=== PATIENT | male | born 1955 | race Caucasian/White ===

== ENCOUNTER 2018-02-03 11:49 | Inpatient (IN) | payer BC ==
--- NOTE | 2018-02-03 12:29 | PDOC ---
History of Present Illness - General Chief Complaint: Seizure Stated Complaint: SEIZURE Time Seen by Provider: 02/03/18 12:08 - History of Present Illness Initial Comments: The patient is a 62M w/ a history of depression and HLD who presents for evaluation of 'seizure-like' activity that started today. The patient states that he first noticed symptoms yesterday which he felt were GERD-like. Today he reports having multiple, short (less than 1min) episodes that are described as a brief loss of consciousness, that he does not remember, and are not followed by a postictal state. He states that he can feel them come on by having a 'jackson to the head.' He denies chest pain, SOB, BAKER, cough, recent illness, fevers, or any other associated symptoms. The patient denies ever having had episodes like this before. He denies history of cardiac disease or cardiac events. 02/03/18 12:26 Past History - Past Medical History Allergies/Adverse Reactions: Allergies Allergy/AdvReac Type Severity Reaction Status Date / Time Penicillins Allergy Rash Verified 02/03/18 17:38 Home Medications: Ambulatory Orders Aripiprazole [Abilify] 10 mg PO DAILY 02/03/18 Escitalopram Oxalate [Lexapro -] 20 mg PO DAILY 02/03/18 Lamotrigine [Lamictal] 200 mg PO BID 02/03/18 COPD: No - Suicide/Smoking/Psychosocial Hx Smoking History: Never smoked Have you smoked in the past 12 months: No Information on smoking cessation initiated: No Hx Alcohol Use: No Drug/Substance Use Hx: No Substance Use Type: None Review of Systems - Review of Systems Able to Perform ROS?: Yes Comments:: GENERAL/CONSTITUTIONAL: No fever or chills. No weakness HEAD, EYES, EARS, NOSE AND THROAT: No change in vision. No ear pain or discharge. No sore throat CARDIOVASCULAR: No chest pain or shortness of breath RESPIRATORY: No cough, wheezing, or hemoptysis GASTROINTESTINAL: No nausea, vomiting, diarrhea or constipation GENITOURINARY: No dysuria, frequency, or change in urination MUSCULOSKELETAL: No joint or muscle swelling or pain. No neck or back pain SKIN: No rash NEUROLOGIC: No headache, vertigo, loss of consciousness, or change in strength/ sensation ENDOCRINE: No increased thirst. No abnormal weight change HEMATOLOGIC/LYMPHATIC: No anemia, easy bleeding, or history of blood clots ALLERGIC/IMMUNOLOGIC: No hives or skin allergy 02/03/18 13:42 Is the patient limited Maltese proficient: No *Physical Exam - Vital Signs Last Vital Signs Temp Pulse Resp BP Pulse Ox 98.0 F 48 L 16 127/80 100 02/03/18 11:49 02/03/18 11:49 02/03/18 11:49 02/03/18 11:49 02/03/18 11:49 - Physical Exam Comments: GENERAL: Awake, alert, and fully oriented, in no acute distress HEAD: No signs of trauma, normocephalic, atraumatic EYES: PERRL, EOMI, sclera anicteric, conjunctiva clear ENT: Hearing grossly normal, nares patent, oropharynx clear without exudates. Moist mucosa NECK: Normal ROM, supple, no lymphadenopathy LUNGS: No distress, speaks full sentences, clear to auscultation bilaterally HEART: Bradycardia w/ regular rhythm, no murmurs appreciated, peripheral pulses normal and equal bilaterally ABDOMEN: Soft, nontender, normoactive bowel sounds. No guarding, no rebound EXTREMITIES : Normal inspection, Normal range of motion, no edema. No clubbing or cyanosis NEUROLOGICAL: Cranial nerves II through XII grossly intact. Normal speech, normal gait, no focal sensorimotor deficits SKIN: Warm, Dry, normal turgor, no rashes or lesions noted 02/03/18 13:41 ED Treatment Course - LABORATORY CBC & Chemistry Diagram: 02/03/18 12:30 02/03/18 12:23 Medical Decision Making - Medical Decision Making The patient is a 62M w/ a history of depression and hypercholesterolemia who presents w/ 1 day of short, syncopal v seizure-like episodes. Ddx: seizure v cardiac dz v cardiac conduction block v lyte abn v Lyme dz ED Course CMP, CBC, cardiac enzymes, TSH, Lyme titer ECG Patient denies any bites/exposures Denies hx of thyroid dz ECG significant for 3rd degree heartblock Transcutaneous pacer pads placed but patient not currently being paced Cardiology consulted, Dr. Corbin -Patient started on Dobutamine gtt Plan for admission to ICU for 3rd degree heart block ICU consulted No leukocytosis Lytes wnl No HOLLI Repeat ECG per Hospitalist Patient w/o repeat episode since initiation of dopamine gtt (currently at 7 mcg/ kg/min) Pacer pads still in place Patient reports feeling well HR 80s, BP 130s/70s, SpO2 90s on RA; Patient reports feeling well at this time Dispo: ICU Admit 02/03/18 13:51 *DC/Admit/Observation/Transfer Diagnosis at time of Disposition: High-grade atrioventricular block - Discharge Dispostion Condition at time of disposition: Guarded Decision to Admit order: Yes - Referrals - Patient Instructions - Post Discharge Activity
[2018-02-03] MEDS ORDERED: MIDAZOLAM HCL 2 MG/2 ML SINGLE DOSE VIAL ONE ×2 (12:32→18:28)
--- NOTE | 2018-02-03 12:39 | PDOC ---
Attending Attestation - HPI HPI: 02/03/18 13:30 The patient is a 62 year old male, with a significant past medical history of depression and hyperlipidemia, who presents to the emergency department for evaluation of multiple seizures-like episodes since yesterday. He reports the seizures as body shaking lasting for about 1 minute before resolving. He reportedly passed out yesterday and woke up on the floor. He denies any preceding chest pain, shortness of breath, or diaphoresis prior to his seizure and syncope yesterday. He states he was talking on the phone with family today when the body shaking recurred prompting him to call EMS. He denies any LOC at home today. As per EMS, the patient became unresponsive in route and his QRS disappeared and returned when he regained consciousness. He denies any recent medication use. He is a retired [employer]. The patient denies chest pain, shortness of breath, headache and dizziness. The patient denies fever, chills, nausea, vomit, diarrhea and constipation. The patient denies dysuria, frequency, urgency and hematuria. Allergies: Penicillins Social history: Pt denies ETOH or tobacco use PCP - Dr. Leon Ramires - Physicial Exam PE: 02/03/18 13:30 GENERAL: The patient is awake, alert, and fully oriented, Nontoxic. In no distress. HEAD: Normocephalic, atraumatic. EYES: extraocular movements intact, sclera anicteric, conjunctiva clear. ENT: Normal voice, Moist mucous membranes. NECK: Normal range of motion, supple LUNGS: Breath sounds equal, clear to auscultation bilaterally. No wheezes, no rhonchi, no rales. HEART: (+) bradycardic rate. Regular rhythm, without murmur, rub or gallop. ABDOMEN: Soft, nontender, No guarding, no rebound.No CVA tenderness EXTREMITIES: Normal range of motion, no edema. No cyanosis. No erythema, or tenderness. NEUROLOGICAL: No facial assymetry, Normal speech, PSYCH: Normal mood, normal affect. SKIN: Warm, Dry, normal turgor - Medical Decision Making 02/03/18 13:31 Documentation prepared by Natacha Jones, acting as medical practice administrator for Kj Dejesus MD <Natacha Jones - Last Filed: 02/03/18 13:30> - Resident Resident Name: Som Zamarripa - ED Attending Attestation I have performed the following: I have examined & evaluated the patient, The case was reviewed & discussed with the resident, I agree w/resident's findings & plan, Exceptions are as noted - Critical Care Time Total Critical Care Time: 50 Critical Care Statement: The care of this patient involved high complexity decision making to prevent further life threatening deterioration of the patient 's condition and/or to evaluate & treat vital organ system(s) failure or risk of failure. - Medical Decision Making 02/03/18 12:48 pt with multiple epiosdes of 'seizures' here - QRS noted to drop off and pt is pulseless during these episodes - and impoves after a ~3-5 seconds. pt was placed on pacer pads and given versed with anticpation of transcutationeous pacing. discussed with dr. Reeves - recommends starting dopamine gtt. and seemed to have improved his HR to the 80s and decreased episodes of syncope. dr. reeves bedside 02/03/18 13:44 no further episodes of syncope since being on dopamine. tritrated from 15mcg/kg/hr down to 10 > 5, hwever pts HR dropped to 50s, so currently at 10mcg/kg/hr admitted to ICU for further management <Kj Dejesus - Last Filed: 02/03/18 13:45> Heart Score/ECG Review - ECG Impressions Comment:: 02/03/18 12:50 Twelve-lead EKG was performed and reviewed by me. Heart rate of 51 AV disassociation Right bundle-branch block prior EKG for comparisonon <Kj Dejesus - Last Filed: 02/03/18 13:45>
[2018-02-03] MEDS ORDERED: DOPAMINE 400 MG/D5W - 400,000 MCG/250 ML INFUS.BAG IVPB SCH (12:45)
[2018-02-03] MEDS ORDERED: MIDAZOLAM HCL 2 MG/2 ML SINGLE DOSE VIAL IVPUSH ONE ×2 (12:57→18:30)
--- NOTE | 2018-02-03 12:59 | CON.CARD ---
Consult Consult Specialty:: Cardiology Referred by:: Emergency Medicine Reason for Consultation:: Symptomatic bradyarrhythmia - History of Present Illness Chief Complaint: Seizure/syncope History of Present Illness: Patient is a 62 yo male h/o seizure d/o, depression, hyperlipidemia, presents for episodes of seizure-like activities, noted to have symptomatic bradycardia with pauses, pulselessness and AV block on ECG. He denies chest pain, dyspnea, palpitations, near or true syncope, orthopnea, PND or LE edema. HR improved on dopamine gtt. He denies rashes, use of av willian blocking agents. - History Source History Provided By: Patient Limitations to Obtaining History: No Limitations - Alcohol/Substance Use Hx Alcohol Use: No - Smoking History Smoking history: Never smoked Have you smoked in the past 12 months: No Home Medications - Allergies Allergies/Adverse Reactions: Allergies Allergy/AdvReac Type Severity Reaction Status Date / Time Penicillins Allergy Rash Unverified 02/03/18 12:15 - Home Medications Home Medications: Ambulatory Orders Aripiprazole [Abilify] 10 mg PO DAILY 02/03/18 Escitalopram Oxalate [Lexapro -] 20 mg PO DAILY 02/03/18 Lamotrigine [Lamictal] 200 mg PO BID 02/03/18 Review of Systems - Review of Systems Constitutional: reports: No Symptoms Eyes: reports: No Symptoms HENT: reports: No Symptoms Neck: reports: No Symptoms Cardiovascular: reports: No Symptoms Respiratory: reports: No Symptoms Gastrointestinal: reports: No Symptoms Genitourinary: reports: No Symptoms Musculoskeletal: reports: No Symptoms Integumentary: reports: No Symptoms Neurological: reports: Seizure, Syncope Endocrine: reports: No Symptoms Vital Signs: Vital Signs Temperature 98.0 F 02/03/18 11:49 Pulse Rate 48 L 02/03/18 11:49 Respiratory Rate 16 02/03/18 11:49 Blood Pressure 127/80 02/03/18 11:49 O2 Sat by Pulse Oximetry (%) 100 02/03/18 12:28 Constitutional: Yes: No Distress, Calm Neck: Yes: Supple Respiratory: Yes: Regular, CTA Bilaterally Gastrointestinal: Yes: Normal Bowel Sounds, Soft Cardiovascular: Yes: Regular Rate and Rhythm JVD: No Carotid Bruit: No Heart Sounds: Yes: S1, S2 Edema: No - Other Data SR in 50s 3rd deg AVB Problem List - Problems (1) High-grade atrioventricular block Code(s): I44.39 - OTHER ATRIOVENTRICULAR BLOCK (2) Seizure Code(s): R56.9 - UNSPECIFIED CONVULSIONS (3) Seizure disorder Code(s): G40.909 - EPILEPSY, UNSP, NOT INTRACTABLE, WITHOUT STATUS EPILEPTICUS Assessment/Plan 1. Seizure, syncope with symptomatic high-grade AV block 2. Seizure d/o 3. Depression P:1. Check electrolytes, TSH, lyme titer, reversible causes of bradyarrhythmia 2. Echo to assess ventricular and valve fxn 3. Wean dopamine gtt to maintain HR>60-70 4. Exercise treadmill stress testing to assess chronotropic competence vs EP study to assess AH and HV intervals 5. Thank you for consultative opportunity
[2018-02-03 13:08] VITALS: BMI 29.0
[2018-02-03 13:36] LABS: HEMATOCRIT 43.3 % (35.4-49); HEMOGLOBIN 14.5 GM/dL (11.7-16.9); MCHC 33.4 g/dl (32.0-35.9); MEAN CELL VOLUME 92.7 fl (80-96); MEAN PLT VOLUME 9.4 fl (7.5-11.1); PLATELET COUNT 185 K/MM3 (134-434); RBC 4.67 M/mm3 (4.00-5.60); RDW 13.2 % (11.9-15.9); WHITE BLOOD COUNT 11.3 K/mm3 (4.0-10.0)
[2018-02-03 13:37] LABS: INR 0.98 (0.83-1.09); PROTHROMBIN TIME (PATIENT) 11.6 SEC (9.7-13.0)
[2018-02-03 13:58] LABS: ALBUMIN 3.6 g/dl (3.4-5.0); ALK PHOS 68 U/L (45-117); ANION GAP 7 MMOL/L (8-16); BILIRUBIN,TOTAL 0.6 mg/dL (0.2-1); BLOOD UREA NITROGEN 16 mg/dL (7-18); CALCIUM 9.2 mg/dL (8.5-10.1); CHLORIDE 103 mmol/L (98-107); CO2 31 mmol/L (21-32); CREATININE 1.1 mg/dL (0.55-1.3); GLUCOSE,RANDOM 110 mg/dL (74-106); MAGNESIUM 2.4 mg/dL (1.8-2.4); PHOSPHOROUS 4.2 mg/dL (2.5-4.9); POTASSIUM 4.2 mmol/L (3.5-5.1); SGOT/AST 14 U/L (15-37); SGPT/ALT 36 U/L (13-61); SODIUM 141 mmol/L (136-145)
--- NOTE | 2018-02-03 14:41 | ECHO ---
Name: KALYN THORPE Exam:Adult Echocardiogram Study Date: 02/03/2018 01:51 PM Age: 62 yrs Reason For Study: bradyarrythmia MMode/2D Measurements & Calculations IVSd: 1.3 cm Ao root diam: 3.2 cm LVIDd: 3.3 cm LA dimension: 3.8 cm LVIDs: 2.0 cm LVPWd: 0.89 cm LVPWs: 1.1 cm EDV(Teich): 44.8 ml ESV(Teich): 12.8 ml RV S Shady: 22.5 cm/sec Doppler Measurements & Calculations Ao V2 max: 179.9 cm/sec LV V1 max P.3 mmHg Ao max P.0 mmHg LV V1 max: 152.5 cm/sec TR max shady: 271.5 cm/sec PA V2 max: 154.3 cm/sec TR max P.5 mmHg PA max P.6 mmHg Med Peak E' Shady: 13.4 cm/sec Lat Peak E' Shady: 23.8 cm/sec Procedure A complete two-dimensional transthoracic echocardiogram was performed (2D, M-mode, Doppler and color flow Doppler). Technically limited study. Left Ventricle The left ventricle is normal in size. Left ventricular systolic function is normal. Ejection Fraction = 55- 60%. No regional wall motion abnormalities noted. Right Ventricle The right ventricle is normal size. The right ventricular systolic function is grossly normal. Atria The left atrial size is normal. Right atrial size is normal. Mitral Valve The mitral valve is normal in structure and function. There is no mitral regurgitation noted. Tricuspid Valve The tricuspid valve is normal in structure and function. No tricuspid regurgitation. Aortic Valve The aortic valve is normal in structure and function. No aortic regurgitation is present. Pulmonic Valve The pulmonic valve is not well visualized. Great Vessels The aortic root is normal size. Pericardium/Pleura There is no pericardial effusion. Interpretation Summary Technically limited study The left ventricle is normal in size. Left ventricular systolic function is normal. No regional wall motion abnormalities noted. Ejection Fraction = 55-60%. The right ventricular systolic function is grossly normal. The left atrial size is normal. Right atrial size is normal. No significant valvular regurgitations are seen There is no pericardial effusion. Previous study is not available for comparison Dennis Corbin MD 02/03/2018 02:40 PM
--- NOTE | 2018-02-03 14:49 | PN ---
Teaching Attending Note Name of Resident: Christiano Lora ATTENDING PHYSICIAN STATEMENT I saw and evaluated the patient. I reviewed the resident's note and discussed the case with the resident. I agree with the resident's findings and plan as documented. SUBJECTIVE: Pt seen and examined in the ER. Briefly, 62 year old male with h/o depression who presents with syncopal episodes was found to be bradycardic with high degree AV block. Denies shortness of breath or chest pain. [place] lightheaded prior to syncope. No prior cardiac history. Started on dopamine gtt with good response, now borderline tachycardic. BP has always been stable. OBJECTIVE: Vital Signs Period Temp Pulse Resp BP Sys/[place] Pulse Ox Last 24 Hr 98.0 F 42-106 16-18 102-151/51-100 98-100 Gen: NAD at rest Heart: RRR Lung: decreased breath sounds at the bases Abd: soft, nontender Ext: no edema CBC, BMP 02/03/18 12:30 02/03/18 12:23 Active Medications Dopamine HCl/Dextrose (Dopamine 400 Mg/D5w -) 400,000 mcg in 250 mls @ 15.309 mls/hr IVPB TITR KRISTA; Protocol Last Titration: 02/03/18 14:26 Dose: 7 mcg/kg/min, 21.432 mls/hr ASSESSMENT AND PLAN: Syncope High Degree AV Block Depression - taper down dopamine gtt target HR 60s - f/u TFTs - lyme titer - echocardiogram - exercise testing when stable - DVT prophylaxis - ICU monitoring
--- NOTE | 2018-02-03 15:03 | CONSULT ---
Consultation: REQUESTING PROVIDER: Kj Dejesus MD CONSULT REQUEST: We have been asked to medically evaluate this patient for LOC 2 /2 complete heart block. HISTORY OF PRESENT ILLNESS: Patient is a 62 y/o w/ PMHx of depression treated with multiple psychiatric medications, no prior h/o cardiac or neurologic issues, presenting w/ ~8 episodes of LOC lasting 5-10 seconds causing falls. Pt felt warm and flushing prior to the episodes. Denies CP, SOB, seizure-like activity, tongue-biting, loss of continence, post-ictal state. ROS otherwise negative. Found to have 3rd degree AV block on EKG in ED. Started on dopamine drip, evaluted by cardiology and underwent echo. Labs wnl apart from elevated TSH. REVIEW OF SYSTEMS: As per HPI PHYSICAL EXAMINATION Vital Signs - 24 hr 02/03/18 02/03/18 02/03/18 11:49 12:28 12:30 Temperature 98.0 F Pulse Rate 48 L 42 L Pulse Rate [ Apical] Respiratory 16 Rate Blood Pressure 127/80 120/65 Blood Pressure [Right Arm] O2 Sat by Pulse 100 100 Oximetry (%) 02/03/18 02/03/18 02/03/18 12:45 13:05 13:20 Temperature Pulse Rate 95 H 90 Pulse Rate [ 84 93 H Apical] Respiratory 16 16 Rate Blood Pressure 127/59 L 102/59 L Blood Pressure 127/59 L 102/58 L [Right Arm] O2 Sat by Pulse 100 100 Oximetry (%) 02/03/18 02/03/18 02/03/18 13:30 13:41 14:02 Temperature Pulse Rate 53 L 96 H Pulse Rate [ 92 H Apical] Respiratory 18 Rate Blood Pressure 102/59 L 151/100 Blood Pressure 126/51 L [Right Arm] O2 Sat by Pulse 98 Oximetry (%) 02/03/18 02/03/18 14:26 14:34 Temperature Pulse Rate 106 H Pulse Rate [ 71 Apical] Respiratory 16 Rate Blood Pressure 102/62 Blood Pressure 126/51 L [Right Arm] O2 Sat by Pulse 98 Oximetry (%) GENERAL: A&Ox3, NAD HEAD: NC/AT EYES: PERRLA, EOMI EARS, NOSE, THROAT: Ears normal, nares patent, oropharynx clear without exudates. Moist mucous membranes. NECK: Normal range of motion, supple without lymphadenopathy, JVD, or masses. LUNGS: Breath sounds equal, clear to auscultation bilaterally. No wheezes, and no crackles. No accessory muscle use. HEART: Dissociated, irregular cardiac rhythm ABDOMEN: Soft, nontender, not distended, normoactive bowel sounds, no guarding, no rebound, no masses. No hepatomegaly or splenomegaly. MUSCULOSKELETAL: Normal range of motion at all joints. No bony deformities or tenderness. No CVA tenderness. UPPER EXTREMITIES: 2+ pulses, warm, well-perfused. No cyanosis. No clubbing. Cap refill <2 seconds. No peripheral edema. LOWER EXTREMITIES: 2+ pulses, warm, well-perfused. No calf tenderness. No peripheral edema. NEUROLOGICAL: Cranial nerves II-XII intact. Normal speech. Normal gait. PSYCHIATRIC: Cooperative. Good eye contact. Appropriate mood and affect. SKIN: Warm, dry, normal turgor, no rashes or lesions noted. Laboratory Results - last 24 hr 02/03/18 02/03/18 02/03/18 12:23 12:30 12:30 WBC 11.3 H RBC 4.67 Hgb 14.5 Hct 43.3 MCV 92.7 MCH 31.0 MCHC 33.4 RDW 13.2 Plt Count 185 MPV 9.4 PT with INR 11.60 INR 0.98 Sodium 141 Potassium 4.2 Chloride 103 Carbon Dioxide 31 Anion Gap 7 L BUN 16 Creatinine 1.1 Creat Clearance w eGFR > 60 Random Glucose 110 H Calcium 9.2 Phosphorus 4.2 Magnesium 2.4 Total Bilirubin 0.6 AST 14 L ALT 36 Alkaline Phosphatase 68 Creatine Kinase 102 Troponin I < 0.02 Total Protein 7.0 Albumin 3.6 TSH 4.06 H D Active Medications Generic Name Dose Route Start Last Admin Trade Name Freq PRN Reason Stop Dose Admin Dopamine HCl/Dextrose 400,000 mcg in 250 mls @ 15.309 mls/hr 02/03/18 12:45 02/03/18 14:26 Dopamine 400 Mg/D5w - IVPB 7 mcg/kg/min TITR KRISTA 21.432 mls/hr Titration Protocol 5 MCG/KG/MIN ASSESSMENT/PLAN: 62 y/o M w/ PMHx depression p/w multiple episodes of brief LOC resulting in falls, found to be in 3rd degree AV block #3rd degree AV block -cardiology consulted -echo pending -on dopamine drip, titrating to 5 mcg then will attempt to wean off -for stress test when stable -TSH 4.06 -FT3, FT4 ordered -hypothyroidism associated with AV block in literature -close monitoring -Lyme studies pending #LOC -CT head for r/o intracranial bleed #depression -restarting home Lexapro, Lamictal, Abilify -holding home Vyvanse #FEN -no IVF -lytes wnl -regular diet #PPx -DVT: SCDs -GI: not indicated #Dispo: We will continue to follow the patient. Thank you for this consultative opportunity. Visit type - Emergency Visit Emergency Visit: Yes Care time: The patient presented to the Emergency Department on the above date and was hospitalized for further evaluation of their emergent condition. - New Patient This patient is new to me today: Yes Date on this admission: 02/03/18 - Critical Care Critical Care patient: Yes Total Critical Care Time (in minutes): 40 Critical Care Statement: The care of this patient involved high complexity decision making to prevent further life threatening deterioration of the patient 's condition and/or to evaluate & treat vital organ system(s) failure or risk of failure.
--- NOTE | 2018-02-03 15:55 | HP ---
CHIEF COMPLAINT: passed out PCP: Dr. Ramires HISTORY OF PRESENT ILLNESS: 62 year old male with a history of depression and hyperlipidemia presents to the hospital complaining of 1 day history of multiple episodes of passing out. Reports it started spontaneously yesterday and when they episodes happen, he loses consciousness for 5-10 seconds before regaining it. Prior to each episode , he reports that he feels blood rushing to his head. Denies ever experiencing these episodes in the past. Denies history of seizures. Denies any chest pain, shortness of breath, nausea, vomiting, diarrhea, fevers, chills, bowel or bladder incontinence. Denies being bitten by a tick, denies hiking trips or walking in the [place], denies rashes. Reports mild fatigue over the past several months. Denies changes to his medications, he has been on antidepressant medications for many years. ER course was notable for: (1) EKG notable for 3rd degree heart block --> given dopamine drip --> converted to 1st degree heart block with bigeminy (2) TSH elevated (3) Free T4 elevated Recent Travel: denies PAST MEDICAL HISTORY: depression, hyperlipidemia PAST SURGICAL HISTORY: denies Social History: Smoking: never smoked cigarettes, smoked cigars in the past infrequently Alcohol: denies Drugs: denies Family History: denies cardiac history, family hx of MS and diabetes. Allergies Penicillins Allergy (Unverified 02/03/18 12:15) Rash HOME MEDICATIONS: Home Medications Medication Instructions Recorded Aripiprazole [Abilify] 10 mg PO DAILY 02/03/18 Escitalopram Oxalate [Lexapro -] 20 mg PO DAILY 02/03/18 Lamotrigine [Lamictal] 200 mg PO BID 02/03/18 REVIEW OF SYSTEMS CONSTITUTIONAL: Absent: fever, chills, diaphoresis, generalized weakness, malaise, loss of appetite, weight change HEENT: Absent: rhinorrhea, nasal congestion, throat pain, throat swelling, difficulty swallowing, mouth swelling, ear pain, eye pain, visual changes CARDIOVASCULAR: Absent: chest pain, syncope, palpitations, irregular heart rate, lightheadedness , peripheral edema RESPIRATORY: Absent: cough, shortness of breath, dyspnea with exertion, orthopnea, wheezing, stridor, hemoptysis GASTROINTESTINAL: Absent: abdominal pain, abdominal distension, nausea, vomiting, diarrhea, constipation, melena, hematochezia GENITOURINARY: Absent: dysuria, frequency, urgency, hesitancy, hematuria, flank pain, genital pain MUSCULOSKELETAL: Absent: myalgia, arthralgia, joint swelling, back pain, neck pain SKIN: Absent: rash, itching, pallor HEMATOLOGIC/IMMUNOLOGIC: Absent: easy bleeding, easy bruising, lymphadenopathy, frequent infections ENDOCRINE: Absent: unexplained weight gain, unexplained weight loss, heat intolerance, cold intolerance NEUROLOGIC: Absent: headache, focal weakness or paresthesias, dizziness, unsteady gait, seizure, mental status changes, bladder or bowel incontinence PSYCHIATRIC: Absent: anxiety, depression, suicidal or homicidal ideation, hallucinations. PHYSICAL EXAMINATION Vital Signs - 24 hr 02/03/18 02/03/18 02/03/18 11:49 12:28 12:30 Temperature 98.0 F Pulse Rate 48 L 42 L Pulse Rate [ Apical] Respiratory 16 Rate Blood Pressure 127/80 120/65 Blood Pressure [Right Arm] O2 Sat by Pulse 100 100 Oximetry (%) 02/03/18 02/03/18 02/03/18 12:45 13:05 13:20 Temperature Pulse Rate 95 H 90 Pulse Rate [ 84 93 H Apical] Respiratory 16 16 Rate Blood Pressure 127/59 L 102/59 L Blood Pressure 127/59 L 102/58 L [Right Arm] O2 Sat by Pulse 100 100 Oximetry (%) 02/03/18 02/03/18 02/03/18 13:30 13:41 14:02 Temperature Pulse Rate 53 L 96 H Pulse Rate [ 92 H Apical] Respiratory 18 Rate Blood Pressure 102/59 L 151/100 Blood Pressure 126/51 L [Right Arm] O2 Sat by Pulse 98 Oximetry (%) 02/03/18 02/03/18 02/03/18 14:26 14:34 14:59 Temperature Pulse Rate 106 H 58 L Pulse Rate [ 71 Apical] Respiratory 16 Rate Blood Pressure 102/62 100/68 Blood Pressure 126/51 L [Right Arm] O2 Sat by Pulse 98 Oximetry (%) 02/03/18 15:15 Temperature Pulse Rate 62 Pulse Rate [ Apical] Respiratory Rate Blood Pressure 122/54 L Blood Pressure [Right Arm] O2 Sat by Pulse Oximetry (%) GENERAL: A&Ox3, no acute distress EYES: PERRLA, EOMI ENT: Moist mucus membranes NECK: No JVD LUNGS: CTA, no wheezes HEART: RRR, no murmurs ABDOMEN: Soft, nontender, BS present MUSCULOSKELETAL: No CVA Tenderness EXTREMITIES: 2+ pulses, no edema. NEUROLOGICAL: Cranial nerves II-XII intact. Laboratory Results - last 24 hr 02/03/18 02/03/18 02/03/18 12:23 12:30 12:30 WBC 11.3 H RBC 4.67 Hgb 14.5 Hct 43.3 MCV 92.7 MCH 31.0 MCHC 33.4 RDW 13.2 Plt Count 185 MPV 9.4 PT with INR 11.60 INR 0.98 Sodium 141 Potassium 4.2 Chloride 103 Carbon Dioxide 31 Anion Gap 7 L BUN 16 Creatinine 1.1 Creat Clearance w eGFR > 60 Random Glucose 110 H Calcium 9.2 Phosphorus 4.2 Magnesium 2.4 Total Bilirubin 0.6 AST 14 L ALT 36 Alkaline Phosphatase 68 Creatine Kinase 102 Troponin I < 0.02 Total Protein 7.0 Albumin 3.6 TSH 4.06 H D Free T4 1.26 H ASSESSMENT/PLAN: 62 year old male with a history of depression and hyperlipidemia presents to the hospital complaining of 1 day history of multiple episodes of passing out and found to be in 3rd degree heart block #Third Degree Heart Block: appears converted to 1st degree heart block with bigeminy -No inciting factors -trops (-) -TSH elevated at 4, up from 1.8 in May, free T4 was elevated as well -repeat TFTs, and get Free T4 (dialysis) -endocrine consulted (Dr. García) for possible endocrine cause of 3rd degree heart block -patient is not having any more syncopal episodes -Dopamine drip, titrate down as per cardiology/ICU recommendations -per cardiology, will titrate down drip and perform stress testing on this admission -f/u lyme serology #Hyperlipidemia: chronic -continue home crestor #Depression: -continue lexapro -continue lamictal -continue abilify #FEN -regular diet -electrolytes normal -no standing fluids #Prophylaxis -lovenox 40mg prophylaxis #Disposition -admit for ICU monitoring Visit type - Emergency Visit Emergency Visit: Yes Care time: The patient presented to the Emergency Department on the above date and was hospitalized for further evaluation of their emergent condition. - New Patient This patient is new to me today: Yes Date on this admission: 02/03/18 - Critical Care Critical Care patient: No
--- NOTE | 2018-02-03 17:54 | PN ---
Teaching Attending Note Name of Resident: Lakhwinder Krishna ATTENDING PHYSICIAN STATEMENT I saw and evaluated the patient. I reviewed the resident's note and discussed the case with the resident. I agree with the resident's findings and plan as documented with exceptions below. SUBJECTIVE: 62 yom with pMhx of HLD, depression admission with multiple episodes of syncope , found with high degree AV block in the ED. He is placed on dopamine drip. Currently denies any symptoms, no further syncopal events since on dopamine drip. OBJECTIVE: Vital Signs Period Temp Pulse Resp BP Sys/[place] Pulse Ox Last 24 Hr 98.0 F-98.2 F 42-106 16-18 100-151/51-100 98-100 Intake & Output 01/31/18 02/01/18 02/02/18 02/03/18 23:59 23:59 23:59 23:59 Weight 180 lb GENERAL: Awake, alert, and fully oriented, in no acute distress. HEAD: Normal with no signs of trauma. EYES: Pupils equal, round and reactive to light, extraocular movements intact, sclera anicteric, conjunctiva clear. No lid lag. EARS, NOSE, THROAT: Ears normal, nares patent, oropharynx clear without exudates. Moist mucous membranes. NECK: soft, supple, no JVD. LUNGS: Breath sounds equal, clear to auscultation bilaterally. No wheezes, and no crackles. No accessory muscle use. HEART: S1S2 irregular, unable to appreciate any murmur, rubs or gallops ABDOMEN: Soft, nontender, not distended, normoactive bowel sounds, no guarding, no rebound, no masses. No hepatomegaly or splenomegaly. MUSCULOSKELETAL: Normal range of motion at all joints. No bony deformities or tenderness. No CVA tenderness. UPPER EXTREMITIES: 2+ pulses, warm, well-perfused. No cyanosis. No clubbing. No peripheral edema. LOWER EXTREMITIES: 2+ pulses, warm, well-perfused. No calf tenderness. No peripheral edema. NEUROLOGICAL: Cranial nerves II-XII intact. Normal speech. facial symmetry, power 5/5, tongue mildline, sensation positive to light touch, PSYCHIATRIC: Cooperative. Good eye contact. Appropriate mood and affect. SKIN: Warm, dry, normal turgor, no rashes or lesions noted, normal capillary refill. Home Medications Medication Instructions Recorded Aripiprazole [Abilify] 10 mg PO DAILY 02/03/18 Escitalopram Oxalate [Lexapro -] 20 mg PO DAILY 02/03/18 Lamotrigine [Lamictal] 200 mg PO BID 02/03/18 Active Medications Aripiprazole (Abilify) 10 mg PO DAILY [facility] Chlorhexidine Gluconate (Hibiclens For Decolonization -) 1 applic TP HS [facility] Enoxaparin Sodium (Lovenox -) 40 mg SQ DAILY [facility] Escitalopram Oxalate (Lexapro -) 20 mg PO DAILY [facility] Dopamine HCl/Dextrose (Dopamine 400 Mg/D5w -) 400,000 mcg in 250 mls @ 15.309 mls/hr IVPB TITR [facility]; Protocol Last Titration: 02/03/18 17:30 Dose: 15 mcg/kg/min, 45.926 mls/hr Lamotrigine (Lamictal -) 200 mg PO BID [facility] Mupirocin (Bactroban Ointment (For Decolonization) -) 1 applic NS BID [facility] Stop: 02/08/18 21:59 Rosuvastatin Calcium (Crestor -) 5 mg PO HS [facility] Laboratory Results - last 24 hr 02/03/18 02/03/18 02/03/18 12:23 12:30 12:30 WBC 11.3 H RBC 4.67 Hgb 14.5 Hct 43.3 MCV 92.7 MCH 31.0 MCHC 33.4 RDW 13.2 Plt Count 185 MPV 9.4 PT with INR 11.60 INR 0.98 Sodium 141 Potassium 4.2 Chloride 103 Carbon Dioxide 31 Anion Gap 7 L BUN 16 Creatinine 1.1 Creat Clearance w eGFR > 60 Random Glucose 110 H Calcium 9.2 Phosphorus 4.2 Magnesium 2.4 Total Bilirubin 0.6 AST 14 L ALT 36 Alkaline Phosphatase 68 Creatine Kinase 102 Troponin I < 0.02 Total Protein 7.0 Albumin 3.6 TSH 4.06 H D Free T4 1.26 H EKG 1 complete heart block EKG 2 P waves visible, irregular QRS, ventricular bigeminy pattern Telemetry: Reviewed in detail, high degree av block vs complete heart block, intermittent tachycardic episodes (in setting of dopamine). Rhythm strip from episodes of syncope not available 2D echo result reviewed CXR no acute process ASSESSMENT AND PLAN: 62 yom with PMHx of depression/HLD admitted with multiple syncopal episodes of high degree Av block/Complete heart block -Syncope -High degree Av block/Complete heart block -Depression -HLD Plan: Discussed in detail with Dr. Reeves and Dr Gold. Dopamine drip, ICU monitoring. Will likely need tranvenous pacing if fails to respond, will defer to cardiology. Thyroid function test noted. Dr. García consulted. Repeat TSH and free T4 (dialysis). Accordingly will need to address synthroid 25 mcg daily. NO recent medications changes, continue with caution. Dispo ICU close monitoring Plan discussed with patient and family at bedside in detail, all questions answered. Total critical care time spent including patient visit, review, discussion with ICU, cardiology, RN and all questions answered. Total admit time 65 min.
[2018-02-03] MEDS ORDERED: DOPAMINE 400 MG/D5W - 400,000 MCG/250 ML INFUS.BAG IVPB ONE (18:20)
[2018-02-03] MEDS ORDERED: LIDOCAINE HCL 1%, 10 MG/ML (20ML VIAL) ONE (18:47)
--- NOTE | 2018-02-03 19:23 | PN ---
Progress Note (short form) - Note Progress Note: Procedure Note: Transvenous pacing via RIJ approach Indications: Symptomatic high-grade AV block with syncope Procedure: After informed consent was obtained, right IJ access obtained via usual sterile Seldinger technique with ultrasound guidance. Transvenous pacer floated to RV with appropriate capture, loss of capture noted at 0.5 mA, set output at 2.0 mA, HR 60, CXR pending r/o PTX otherwise no complications. Recommendations: Recheck pacer dependency, pacing threshholds daily Problem List - Problems (1) High-grade atrioventricular block Code(s): I44.39 - OTHER ATRIOVENTRICULAR BLOCK (2) Seizure Code(s): R56.9 - UNSPECIFIED CONVULSIONS (3) Seizure disorder Code(s): G40.909 - EPILEPSY, UNSP, NOT INTRACTABLE, WITHOUT STATUS EPILEPTICUS
--- NOTE | 2018-02-03 19:29 | HP ---
CHIEF COMPLAINT: Repeated LOC PCP: HISTORY OF PRESENT ILLNESS: 62 yo Male with PMH of Depression and HLD presented with complaints of LOC numerous times over the last two days. The patient describes a sense of blood rushing to his head and then his eyes roll up and he loses consciousness. These events have been witness and the patient has some shaking during the episodes, but not severe contraction of extremities or tonic clonic movements. He does not have episodes of tongue biting or bowel or bladder incontinence. He does not have any confusio and is immediately aware of his surroundings after he regains consciousness. The episodes last usually about 5-10 seconds though some have lasted up to 30 seconds. He has not had any head trauma and has only fallen once or twice. He complains of some left leg pain which is very minimal. He states that he does occasional yard work but does not spend much time in [place]. He denies any recent bug bites specifically any tick bites or rashes. ER course was notable for: (1) EKG with 3rd degree block (2) Cardio consult - Dopamine drip (3) Pacer leads in place Recent Travel: none PAST MEDICAL HISTORY: Depression, HLD PAST SURGICAL HISTORY: Denies Social History: Smoking: None Alcohol: None Drugs: None Family History: Allergies Penicillins Allergy (Verified 02/03/18 17:38) Rash HOME MEDICATIONS: Home Medications Medication Instructions Recorded Aripiprazole [Abilify] 10 mg PO DAILY 02/03/18 Escitalopram Oxalate [Lexapro -] 20 mg PO DAILY 02/03/18 Lamotrigine [Lamictal] 200 mg PO BID 02/03/18 REVIEW OF SYSTEMS CONSTITUTIONAL: Absent: fever, chills, diaphoresis, generalized weakness, malaise, loss of appetite, weight change HEENT: Absent: rhinorrhea, nasal congestion, throat pain, throat swelling, difficulty swallowing, mouth swelling, ear pain, eye pain, visual changes CARDIOVASCULAR: syncope Absent: chest pain, , palpitations, irregular heart rate, lightheadedness, peripheral edema RESPIRATORY: Absent: cough, shortness of breath, dyspnea with exertion, orthopnea, wheezing, stridor, hemoptysis GASTROINTESTINAL: Absent: abdominal pain, abdominal distension, nausea, vomiting, diarrhea, constipation, melena, hematochezia GENITOURINARY: Absent: dysuria, frequency, urgency, hesitancy, hematuria, flank pain, genital pain MUSCULOSKELETAL: Absent: myalgia, arthralgia, joint swelling, back pain, neck pain SKIN: Absent: rash, itching, pallor HEMATOLOGIC/IMMUNOLOGIC: Absent: easy bleeding, easy bruising, lymphadenopathy, frequent infections ENDOCRINE: Absent: unexplained weight gain, unexplained weight loss, heat intolerance, cold intolerance NEUROLOGIC: Absent: headache, focal weakness or paresthesias, dizziness, unsteady gait, seizure, mental status changes, bladder or bowel incontinence PSYCHIATRIC: depression Absent: anxiety, , suicidal or homicidal ideation, hallucinations. PHYSICAL EXAMINATION Vital Signs - 24 hr 02/03/18 02/03/18 02/03/18 11:49 12:28 12:30 Temperature 98.0 F Pulse Rate 48 L 42 L Pulse Rate [ Apical] Respiratory 16 Rate Blood Pressure 127/80 120/65 Blood Pressure [Right Arm] O2 Sat by Pulse 100 100 Oximetry (%) 02/03/18 02/03/18 02/03/18 12:45 13:05 13:20 Temperature Pulse Rate 95 H 90 Pulse Rate [ 84 93 H Apical] Respiratory 16 16 Rate Blood Pressure 127/59 L 102/59 L Blood Pressure 127/59 L 102/58 L [Right Arm] O2 Sat by Pulse 100 100 Oximetry (%) 02/03/18 02/03/18 02/03/18 13:30 13:41 14:02 Temperature Pulse Rate 53 L 96 H Pulse Rate [ 92 H Apical] Respiratory 18 Rate Blood Pressure 102/59 L 151/100 Blood Pressure 126/51 L [Right Arm] O2 Sat by Pulse 98 Oximetry (%) 02/03/18 02/03/18 02/03/18 14:26 14:34 14:59 Temperature Pulse Rate 106 H 58 L Pulse Rate [ 71 Apical] Respiratory 16 Rate Blood Pressure 102/62 100/68 Blood Pressure 126/51 L [Right Arm] O2 Sat by Pulse 98 Oximetry (%) 02/03/18 02/03/18 02/03/18 15:15 16:02 16:05 Temperature 98.2 F Pulse Rate 62 52 L Pulse Rate [ 70 Apical] Respiratory 18 Rate Blood Pressure 122/54 L 120/68 Blood Pressure 102/68 [Right Arm] O2 Sat by Pulse 100 Oximetry (%) 02/03/18 02/03/18 02/03/18 16:43 17:02 17:13 Temperature Pulse Rate 60 55 L Pulse Rate [ 62 Apical] Respiratory 16 Rate Blood Pressure 102/85 120/65 Blood Pressure 104/65 [Right Arm] O2 Sat by Pulse 98 Oximetry (%) 02/03/18 02/03/18 17:30 17:36 Temperature Pulse Rate 74 Pulse Rate [ 82 Apical] Respiratory 18 Rate Blood Pressure 112/68 Blood Pressure 115/85 [Right Arm] O2 Sat by Pulse 98 Oximetry (%) GENERAL: A&O, no acute distress HEAD: Normocephalic, atraumatic. EYES: PERRL, no scleral icterus EARS, NOSE, THROAT: oropharynx clear without exudates. Moist mucous membranes. NECK: supple without lymphadenopathy LUNGS: CTA b/l, no crackles or wheezes HEART: Regular rate and rhythm, normal S1 and S2 without murmur ABDOMEN: Soft, nontender to palpation, normoactive bowel sounds MUSCULOSKELETAL: No bony deformities or tenderness. EXTREMITIES: 2+ pulses, warm, well-perfused. No peripheral edema. NEUROLOGICAL: Cranial nerves II-XII grossly intact. Normal speech. PSYCHIATRIC: Cooperative. Good eye contact. Appropriate mood and affect. SKIN: Warm, dry, no rashes or lesions noted Laboratory Results - last 24 hr 02/03/18 02/03/18 02/03/18 12:23 12:30 12:30 WBC 11.3 H RBC 4.67 Hgb 14.5 Hct 43.3 MCV 92.7 MCH 31.0 MCHC 33.4 RDW 13.2 Plt Count 185 MPV 9.4 PT with INR 11.60 INR 0.98 Sodium 141 Potassium 4.2 Chloride 103 Carbon Dioxide 31 Anion Gap 7 L BUN 16 Creatinine 1.1 Creat Clearance w eGFR > 60 Random Glucose 110 H Calcium 9.2 Phosphorus 4.2 Magnesium 2.4 Total Bilirubin 0.6 AST 14 L ALT 36 Alkaline Phosphatase 68 Creatine Kinase 102 Troponin I < 0.02 Total Protein 7.0 Albumin 3.6 TSH 4.06 H D Free T4 1.26 H ASSESSMENT/PLAN: 62 yo Male with PMH of Depression and HLD presented with complaints of LOC numerous times over the last two days. Syncopal Episodes -Likely due to 3rd Degree Heart Block, etiology unclear, less likely due to lyme though -Cardiology consult appreciated -Dopamine drip for rate control, pt 42 on arrival to ED -Cardiology to place Venous Pacemaker leads -Workup for etiology of heart block Lyme titers pending Increased TSH from May -TSH 1.84 to 4.06 from May to now -Free T4 1.26 -Free T3 pending -Endocrinology Consult appreciated and case discussed, will see tomorrow -Repeat TSH, Free T4 Dialysis Depression -Abilify 10 mg PO Daily -Lamictal 200 mg BID -Lexapro 10 mg PO Daily HLD -Crestor 5 mg PO HS DVT Prophylaxis -Lovenox 40 mg SQ Daily FEN -Fluids: none -Electrolytes: No electrolyte abnormalities, BMP in AM -Nutrition: Regular Diet Disposition ICU Visit type - Emergency Visit Emergency Visit: Yes ED Registration Date: 02/03/18 Care time: The patient presented to the Emergency Department on the above date and was hospitalized for further evaluation of their emergent condition. - New Patient This patient is new to me today: Yes Date on this admission: 02/03/18 - Critical Care Critical Care patient: Yes Total Critical Care Time (in minutes): 40 Critical Care Statement: The care of this patient involved high complexity decision making to prevent further life threatening deterioration of the patient 's condition and/or to evaluate & treat vital organ system(s) failure or risk of failure.
[2018-02-03] MEDS ORDERED: ACETAMINOPHEN 325 MG TABLET (FP) ONE (20:54)
[2018-02-03] MEDS: ACETAMINOPHEN 325 MG TABLET (FP) PO PRN (21:00)
[2018-02-03] MEDS ORDERED: ROSUVASTATIN CA 5 MG TABLET (FP) PO SCH (22:00)
[2018-02-03] MEDS ORDERED: MUPIROCIN 2% TOPICAL OINTMENT FOR DECOLONIZATION NS SCH (22:00)
[2018-02-03] MEDS ORDERED: CHLORHEXIDINE GLUCONATE 4% CLEANSER FOR DECOLONIZATION TP SCH (22:00)
--- NOTE | 2018-02-03 23:50 | CONSULT ---
Consultation: REQUESTING PROVIDER: CONSULT REQUEST: We have been asked to medically evaluate this patient for ( specify). HISTORY OF PRESENT ILLNESS: This is a 62 yo M with PMH of AF on toprol and cardizem, HLD, Depression, who initially presented due to several episodes of LOC REVIEW OF SYSTEMS: CONSTITUTIONAL: Absent: fever, chills, diaphoresis, generalized weakness, malaise, loss of appetite, weight change HEENT: Absent: rhinorrhea, nasal congestion, throat pain, throat swelling, difficulty swallowing, mouth swelling, ear pain, eye pain, visual changes CARDIOVASCULAR: Absent: chest pain, syncope, palpitations, irregular heart rate, lightheadedness , peripheral edema RESPIRATORY: Absent: cough, shortness of breath, dyspnea with exertion, orthopnea, wheezing, stridor, hemoptysis GASTROINTESTINAL: Absent: abdominal pain, abdominal distension, nausea, vomiting, diarrhea, constipation, melena, hematochezia GENITOURINARY: Absent: dysuria, frequency, urgency, hesitancy, hematuria, flank pain, genital pain MUSCULOSKELETAL: Absent: myalgia, arthralgia, joint swelling, back pain, neck pain SKIN: Absent: rash, itching, pallor HEMATOLOGIC/IMMUNOLOGIC: Absent: easy bleeding, easy bruising, lymphadenopathy, frequent infections ENDOCRINE: Absent: unexplained weight gain, unexplained weight loss, heat intolerance, cold intolerance NEUROLOGIC: Absent: headache, focal weakness or paresthesias, dizziness, unsteady gait, seizure, mental status changes, bladder or bowel incontinence PSYCHIATRIC: Absent: anxiety, depression, suicidal or homicidal ideation, hallucinations. PHYSICAL EXAMINATION Vital Signs - 24 hr 02/03/18 02/03/18 02/03/18 11:49 12:28 12:30 Temperature 98.0 F Pulse Rate 48 L 42 L Pulse Rate [ Apical] Respiratory 16 Rate Blood Pressure 127/80 120/65 Blood Pressure [Right Arm] O2 Sat by Pulse 100 100 Oximetry (%) 02/03/18 02/03/18 02/03/18 12:45 13:05 13:20 Temperature Pulse Rate 95 H 90 Pulse Rate [ 84 93 H Apical] Respiratory 16 16 Rate Blood Pressure 127/59 L 102/59 L Blood Pressure 127/59 L 102/58 L [Right Arm] O2 Sat by Pulse 100 100 Oximetry (%) 10/01/18 10/01/18 10/01/18 13:30 13:41 14:02 Temperature Pulse Rate 53 L 96 H Pulse Rate [ 92 H Apical] Respiratory 18 Rate Blood Pressure 102/59 L 151/100 Blood Pressure 126/51 L [Right Arm] O2 Sat by Pulse 98 Oximetry (%) 02/03/18 02/03/18 02/03/18 14:26 14:34 14:59 Temperature Pulse Rate 106 H 58 L Pulse Rate [ 71 Apical] Respiratory 16 Rate Blood Pressure 102/62 100/68 Blood Pressure 126/51 L [Right Arm] O2 Sat by Pulse 98 Oximetry (%) 02/03/18 02/03/18 02/03/18 15:15 16:02 16:05 Temperature 98.2 F Pulse Rate 62 52 L Pulse Rate [ 70 Apical] Respiratory 18 Rate Blood Pressure 122/54 L 120/68 Blood Pressure 102/68 [Right Arm] O2 Sat by Pulse 100 Oximetry (%) 02/03/18 02/03/18 02/03/18 16:43 17:02 17:13 Temperature Pulse Rate 60 55 L Pulse Rate [ 62 Apical] Respiratory 16 Rate Blood Pressure 102/85 120/65 Blood Pressure 104/65 [Right Arm] O2 Sat by Pulse 98 Oximetry (%) 02/03/18 02/03/18 02/03/18 17:30 17:36 18:10 Temperature 97 F L Pulse Rate 74 54 L Pulse Rate [ 82 Apical] Respiratory 18 18 Rate Blood Pressure 112/68 179/72 H Blood Pressure 115/85 [Right Arm] O2 Sat by Pulse 98 Oximetry (%) 02/03/18 02/03/18 02/03/18 18:50 20:33 20:57 Temperature 98.2 F 99.0 F Pulse Rate 62 61 61 Pulse Rate [ Apical] Respiratory 14 18 Rate Blood Pressure 100/61 106/62 Blood Pressure [Right Arm] O2 Sat by Pulse Oximetry (%) 02/03/18 02/03/18 02/03/18 21:00 22:00 23:00 Temperature 99.2 F 99.2 F Pulse Rate 61 61 61 Pulse Rate [ Apical] Respiratory 18 18 18 Rate Blood Pressure 111/69 107/63 114/59 L Blood Pressure [Right Arm] O2 Sat by Pulse Oximetry (%) GENERAL: Awake, alert, and fully oriented, in no acute distress. HEAD: Normal with no signs of trauma. EYES: Pupils equal, round and reactive to light, extraocular movements intact, sclera anicteric, conjunctiva clear. No lid lag. EARS, NOSE, THROAT: Ears normal, nares patent, oropharynx clear without exudates. Moist mucous membranes. NECK: Normal range of motion, supple without lymphadenopathy, JVD, or masses. LUNGS: Breath sounds equal, clear to auscultation bilaterally. No wheezes, and no crackles. No accessory muscle use. HEART: Regular rate and rhythm, normal S1 and S2 without murmur, rub or gallop. ABDOMEN: Soft, nontender, not distended, normoactive bowel sounds, no guarding, no rebound, no masses. No hepatomegaly or splenomegaly. MUSCULOSKELETAL: Normal range of motion at all joints. No bony deformities or tenderness. No CVA tenderness. UPPER EXTREMITIES: 2+ pulses, warm, well-perfused. No cyanosis. No clubbing. Cap refill <2 seconds. No peripheral edema. LOWER EXTREMITIES: 2+ pulses, warm, well-perfused. No calf tenderness. No peripheral edema. NEUROLOGICAL: Cranial nerves II-XII intact. Normal speech. Normal gait. PSYCHIATRIC: Cooperative. Good eye contact. Appropriate mood and affect. SKIN: Warm, dry, normal turgor, no rashes or lesions noted. Laboratory Results - last 24 hr 02/03/18 02/03/18 02/03/18 12:23 12:30 12:30 WBC 11.3 H RBC 4.67 Hgb 14.5 Hct 43.3 MCV 92.7 MCH 31.0 MCHC 33.4 RDW 13.2 Plt Count 185 MPV 9.4 PT with INR 11.60 INR 0.98 Sodium 141 Potassium 4.2 Chloride 103 Carbon Dioxide 31 Anion Gap 7 L BUN 16 Creatinine 1.1 Creat Clearance w eGFR > 60 Random Glucose 110 H Calcium 9.2 Phosphorus 4.2 Magnesium 2.4 Total Bilirubin 0.6 AST 14 L ALT 36 Alkaline Phosphatase 68 Creatine Kinase 102 Troponin I < 0.02 Total Protein 7.0 Albumin 3.6 TSH 4.06 H D Free T4 1.26 H 02/03/18 21:00 WBC RBC Hgb Hct MCV MCH MCHC RDW Plt Count MPV PT with INR INR Sodium Potassium Chloride Carbon Dioxide Anion Gap BUN Creatinine Creat Clearance w eGFR Random Glucose Calcium Phosphorus Magnesium Total Bilirubin AST ALT Alkaline Phosphatase Creatine Kinase Troponin I Total Protein Albumin TSH 2.95 D Free T4 Active Medications Generic Name Dose Route Start Last Admin Trade Name Freq PRN Reason Stop Dose Admin Acetaminophen 650 mg 02/03/18 20:52 02/03/18 21:00 Tylenol - PO 650 mg Q4H PRN Administration FEVER Aripiprazole 10 mg 02/04/18 10:00 Abilify PO DAILY KRISTA Chlorhexidine Gluconate 1 applic 02/03/18 22:00 02/03/18 21:49 Hibiclens For Decolonization - TP 1 applic HS KRISTA Administration Enoxaparin Sodium 40 mg 02/04/18 10:00 Lovenox - SQ DAILY KRISTA Escitalopram Oxalate 20 mg 02/04/18 10:00 Lexapro - PO DAILY KRISTA Lamotrigine 200 mg 02/03/18 22:00 02/03/18 22:00 Lamictal - PO 200 mg BID KRISTA Administration Mupirocin 1 applic 02/03/18 22:00 Bactroban Ointment (For Decolonization) - NS 02/08/18 21:59 BID KRISTA Rosuvastatin Calcium 5 mg 02/03/18 22:00 02/03/18 22:00 Crestor - PO 5 mg HS KRISTA Administration ASSESSMENT/PLAN: Dispo: We will continue to follow the patient. Thank you for this consultative opportunity.
[2018-02-04] MEDS: ACETAMINOPHEN 325 MG TABLET (FP) PO PRN (06:03)
[2018-02-04 06:36] LABS: HEMATOCRIT 41.8 % (35.4-49); HEMOGLOBIN 14.1 GM/dL (11.7-16.9); MCH 31.1 pg (25.7-33.7); MCHC 33.8 g/dl (32.0-35.9); MEAN CELL VOLUME 91.9 fl (80-96); MEAN PLT VOLUME 8.8 fl (7.5-11.1); PLATELET COUNT 170 K/MM3 (134-434); RBC 4.55 M/mm3 (4.00-5.60); RDW 12.9 % (11.9-15.9); WHITE BLOOD COUNT 9.4 K/mm3 (4.0-10.0)
[2018-02-04 07:14] LABS: ANION GAP 2 MMOL/L (8-16); BLOOD UREA NITROGEN 15 mg/dL (7-18); CALCIUM 9.1 mg/dL (8.5-10.1); CHLORIDE 111 mmol/L (98-107); CHOLESTEROL 100 mg/dL (50-200); CO2 25 mmol/L (21-32); CREATININE 0.8 mg/dL (0.55-1.3); GLUCOSE,RANDOM 96 mg/dL (74-106); HDL CHOLESTEROL 48 mg/dL (40-60); MAGNESIUM 2.1 mg/dL (1.8-2.4); PHOSPHOROUS 3.5 mg/dL (2.5-4.9); SODIUM 138 mmol/L (136-145); TRIGLYCERIDES 70 mg/dL (0-150)
[2018-02-04 08:14] VITALS: PULSE 62
[2018-02-04] MEDS ORDERED: SODIUM CHLORIDE 1,000 ML IV SCH (08:15)
--- NOTE | 2018-02-04 08:50 | PN ---
Progress Note (short form) - Note Progress Note: Chief Complaint: Events noted, notes reviewed, denies any chest discomfort or dyspnea, sinus rhythm is noted with absence of ventricular escape rhythm (pacer dependent) History of Present Illness: Seen and examined in the ICU. Events noted, notes reviewed, denies any chest discomfort or dyspnea, sinus rhythm is noted with absence of ventricular escape rhythm (pacer dependent) Echocardiography revealed normal LV and RV size and function with no significant valvular pathology Medications: Current Medications Acetaminophen (Tylenol -) 650 mg PO Q4H PRN PRN Reason: FEVER Last Admin: 02/04/18 06:03 Dose: 650 mg Aripiprazole (Abilify) 10 mg PO DAILY [facility] Chlorhexidine Gluconate (Hibiclens For Decolonization -) 1 applic TP HS [facility] Last Admin: 02/03/18 21:49 Dose: 1 applic Enoxaparin Sodium (Lovenox -) 40 mg SQ DAILY [facility] Escitalopram Oxalate (Lexapro -) 20 mg PO DAILY [facility] Sodium Chloride (Normal Saline -) 1,000 mls @ 21 mls/hr IV ASDIR [facility] Lamotrigine (Lamictal -) 200 mg PO BID [facility] Mupirocin (Bactroban Ointment (For Decolonization) -) 1 applic NS BID [facility] Stop: 02/08/18 21:59 Last Admin: 02/04/18 06:04 Dose: Not Given Rosuvastatin Calcium (Crestor -) 5 mg PO HS [facility] Last Admin: 02/03/18 22:00 Dose: 5 mg Review of Systems Constitutional: denies: Chills or Fever Cardiovascular: As noted above Respiratory: denies: Cough or Sputum Production Gastrointestinal: denies: Nausea, Vomiting, Diarrhea, Constipation or Abdominal Pain Genitourinary: No symptoms reported Vital Signs: Last Vital Signs Temp Pulse Resp BP Pulse Ox 98.8 F 62 18 120/65 94 L 02/04/18 08:00 02/04/18 08:00 02/04/18 08:00 02/04/18 08:00 02/04/18 07:47 Intake & Output 02/01/18 02/02/18 02/03/18 02/04/18 23:59 23:59 23:59 23:59 Output Total 800 500 Balance -800 -500 Weight 185 lb 7 oz Neck: Supple Negative JVD Respiratory: Clear to A&P Bilaterally Cardiovascular: S1 S2 Regular Rate and Rhythm No Murmurs Gastrointestinal: Soft Benign Normal Bowel Sounds Ext: Negative edema Labs: Troponin, BNP 02/03/18 12:23 Troponin I < 0.02 CBC, BMP 02/04/18 05:30 02/04/18 05:30 Hepatic Panel Total Bilirubin 0.6 mg/dL (0.2-1) 02/03/18 12:23 AST 14 U/L (15-37) L 02/03/18 12:23 ALT 36 U/L (13-61) 02/03/18 12:23 Alkaline Phosphatase 68 U/L (45-117) 02/03/18 12:23 Albumin 3.6 g/dl (3.4-5.0) 02/03/18 12:23 INR, PTT INR 0.98 (0.83-1.09) 02/03/18 12:30 Assessment/Plan ASSESSMENT: 1. Syncope with symptomatic high-grade AV block, post temporary pacemaker insertion for PPM later today (persistent block) 2. Seizure disorder 3. History of clinical depression 4. Hypercholesterolemia PLAN: 1. In view of persistence of advanced AV block with absence of evidence of structural heart disease plan to proceed with PPM implant under care of EP service (no EP service at [facility]) plan to transfer urgently to [facility], discussed in detail with the patient, risk/benefits and alternatives were reviewed 2. Continue Crestor 3. Continue Aripiprazole (Abilify), Escitalopram Oxalate (Lexapro) and Lamotrigine (Lamictal) therapies Adwoa Fernandez M.D.
[2018-02-04] MEDS ORDERED: lamoTRIgine 100 MG TABLET (FP) PO SCH (10:00)
[2018-02-04] MEDS ORDERED: ENOXAPARIN NA (PORCINE) 40 MG/0.4 ML DISP.SYRIN SQ SCH (10:00)
[2018-02-04] MEDS ORDERED: ESCITALOPRAM OXALATE 20 MG TABLET (FP) PO SCH (10:00)
[2018-02-04] MEDS ORDERED: ARIPiprazole 10 MG TABLET PO SCH (10:00)
[2018-02-04] MEDS ORDERED: PT OWN MED DRAWER 7, Y5N ONE (10:02)
[2018-02-04 10:12] VITALS: BP 121/76
--- NOTE | 2018-02-04 10:35 | PN ---
Physical Exam: SUBJECTIVE: Patient seen and examined at bedside, no complaints. OBJECTIVE: Vital Signs Period Temp Pulse Resp BP Sys/Hartley Pulse Ox Last 24 Hr 97 F-99.4 F 42-106 14-20 99-179/51-100 94-100 GENERAL: A&Ox3, NAD HEAD: NC/AT EYES: PERRLA, EOMI EARS, NOSE, THROAT: Ears normal, nares patent, oropharynx clear without exudates. Moist mucous membranes. NECK: Normal range of motion, supple without lymphadenopathy, JVD, or masses. LUNGS: Breath sounds equal, clear to auscultation bilaterally. No wheezes, and no crackles. No accessory muscle use. HEART: RRR (s/p transcut pacer) ABDOMEN: Soft, nontender, not distended, normoactive bowel sounds, no guarding, no rebound, no masses. No hepatomegaly or splenomegaly. MUSCULOSKELETAL: Normal range of motion at all joints. No bony deformities or tenderness. No CVA tenderness. UPPER EXTREMITIES: 2+ pulses, warm, well-perfused. No cyanosis. No clubbing. Cap refill <2 seconds. No peripheral edema. LOWER EXTREMITIES: 2+ pulses, warm, well-perfused. No calf tenderness. No peripheral edema. NEUROLOGICAL: Cranial nerves II-XII intact. Normal speech. Normal gait. PSYCHIATRIC: Cooperative. Good eye contact. Appropriate mood and affect. SKIN: Warm, dry, normal turgor, no rashes or lesions noted. Laboratory Results - last 24 hr 02/03/18 02/03/18 02/03/18 12:23 12:30 12:30 WBC 11.3 H RBC 4.67 Hgb 14.5 Hct 43.3 MCV 92.7 MCH 31.0 MCHC 33.4 RDW 13.2 Plt Count 185 MPV 9.4 PT with INR 11.60 INR 0.98 Sodium 141 Potassium 4.2 Chloride 103 Carbon Dioxide 31 Anion Gap 7 L BUN 16 Creatinine 1.1 Creat Clearance w eGFR > 60 Random Glucose 110 H Calcium 9.2 Phosphorus 4.2 Magnesium 2.4 Total Bilirubin 0.6 AST 14 L ALT 36 Alkaline Phosphatase 68 Creatine Kinase 102 Troponin I < 0.02 Total Protein 7.0 Albumin 3.6 Triglycerides Cholesterol Total LDL Cholesterol HDL Cholesterol TSH 4.06 H D Free T4 1.26 H 02/03/18 02/04/18 02/04/18 21:00 05:30 05:30 WBC 9.4 RBC 4.55 Hgb 14.1 Hct 41.8 MCV 91.9 MCH 31.1 MCHC 33.8 RDW 12.9 Plt Count 170 MPV 8.8 PT with INR INR Sodium 138 Potassium 4.0 Chloride 111 H Carbon Dioxide 25 Anion Gap 2 L BUN 15 Creatinine 0.8 Creat Clearance w eGFR > 60 Random Glucose 96 Calcium 9.1 Phosphorus 3.5 Magnesium 2.1 Total Bilirubin AST ALT Alkaline Phosphatase Creatine Kinase Troponin I Total Protein Albumin Triglycerides 70 Cholesterol 100 Total LDL Cholesterol 46 HDL Cholesterol 48 TSH 2.95 D Free T4 Active Medications Generic Name Dose Route Start Last Admin Trade Name Freq PRN Reason Stop Dose Admin Acetaminophen 650 mg 02/03/18 20:52 02/04/18 06:03 Tylenol - PO 650 mg Q4H PRN Administration FEVER Aripiprazole 10 mg 02/04/18 10:00 Abilify PO DAILY KRISTA Chlorhexidine Gluconate 1 applic 02/03/18 22:00 02/03/18 21:49 Hibiclens For Decolonization - TP 1 applic HS KRISTA Administration Enoxaparin Sodium 40 mg 02/04/18 10:00 02/04/18 10:04 Lovenox - SQ 40 mg DAILY KRISTA Administration Escitalopram Oxalate 20 mg 02/04/18 10:00 02/04/18 10:04 Lexapro - PO 20 mg DAILY KRISTA Administration Sodium Chloride 1,000 mls @ 21 mls/hr 02/04/18 08:15 Normal Saline - IV ASDIR KRISTA Lamotrigine 200 mg 02/04/18 10:00 02/04/18 10:04 Lamictal - PO 200 mg BID KRISTA Administration Mupirocin 1 applic 02/03/18 22:00 02/04/18 06:04 Bactroban Ointment (For Decolonization) - NS 02/08/18 21:59 Not Given BID KRISTA Rosuvastatin Calcium 5 mg 02/03/18 22:00 02/03/18 22:00 Crestor - PO 5 mg HS KRISTA Administration ASSESSMENT/PLAN: 62 y/o M w/ PMHx depression p/w multiple episodes of brief LOC resulting in falls, found to be in 3rd degree AV block #3rd degree AV block -cardiology consulted -echo pending -cont Crestor -req transfer to [facility] for PPM #depression -cont Alphonsoaprjo-ann, Kristi, Walterfned -holding home [place] #dispo -transfer to [facility] for PPM Visit type - Emergency Visit Emergency Visit: No - New Patient This patient is new to me today: No - Critical Care Critical Care patient: Yes Total Critical Care Time (in minutes): 40 Critical Care Statement: The care of this patient involved high complexity decision making to prevent further life threatening deterioration of the patient 's condition and/or to evaluate & treat vital organ system(s) failure or risk of failure.
--- NOTE | 2018-02-04 10:44 | EKG ---
Test Reason : Blood Pressure : / mmHG Vent. Rate : 063 BPM Atrial Rate : 063 BPM P-R Int : 000 ms QRS Dur : 138 ms QT Int : 416 ms P-R-T Axes : 055 -16 -04 degrees QTc Int : 425 ms SINUS RHYTHM WITH 1ST DEGREE A-V BLOCK WITH PREMATURE ATRIAL COMPLEXES IN A PATTERN OF BIGEMINY RIGHT BUNDLE BRANCH BLOCK ABNORMAL ECG WHEN COMPARED WITH ECG OF 03-FEB-2018 12:11, SINUS RHYTHM HAS REPLACED WIDE QRS RHYTHM Confirmed by David Ely MD ([id number]) on 02/04/2018 10:44:05 AM Referred By: Confirmed By:David Ely MD
--- NOTE | 2018-02-04 10:45 | EKG ---
Test Reason : Blood Pressure : / mmHG Vent. Rate : 051 BPM Atrial Rate : 051 BPM P-R Int : 000 ms QRS Dur : 144 ms QT Int : 496 ms P-R-T Axes : 036 -09 -06 degrees QTc Int : 457 ms SINUS BRADYCARDIA WITH A-V DISSOCIATION AND WIDE QRS RHYTHM RIGHT BUNDLE BRANCH BLOCK INFERIOR INFARCT , AGE UNDETERMINED ABNORMAL ECG NO PREVIOUS ECGS AVAILABLE Confirmed by David Ely MD ([id number]) on 02/04/2018 10:44:53 AM Referred By: Confirmed By:David Ely MD
[2018-02-04 11:06] VITALS: TEMP 98.8
--- NOTE | 2018-02-04 13:44 | DS ---
Physical Exam: SUBJECTIVE: Patient seen and examined this AM. He has no complaints overnight and denies any symptoms. He has discussed with cardiology and agrees to transfer for permanent pacemaker placement. OBJECTIVE: Vital Signs Period Temp Pulse Resp BP Sys/Hartley Pulse Ox Last 24 Hr 97 F-99.4 F 52-106 14-20 99-179/51-85 94-100 PHYSICAL EXAM GENERAL: A&O, no acute distress HEAD: Normocephalic, atraumatic. EYES: PERRL, no scleral icterus EARS, NOSE, THROAT: oropharynx clear without exudates. Moist mucous membranes. NECK: supple without lymphadenopathy, venous pacer wires in place and secured in right neck LUNGS: CTA b/l, no crackles or wheezes HEART: Regular rate and rhythm, normal S1 and S2 without murmur ABDOMEN: Soft, nontender to palpation, normoactive bowel sounds MUSCULOSKELETAL: No bony deformities or tenderness. EXTREMITIES: 2+ pulses, warm, well-perfused. No peripheral edema. NEUROLOGICAL: Cranial nerves II-XII grossly intact. Normal speech. PSYCHIATRIC: Cooperative. Good eye contact. Appropriate mood and affect. SKIN: Warm, dry, no rashes or lesions noted LABS Laboratory Results - last 24 hr 02/03/18 02/03/18 02/04/18 12:23 21:00 05:30 WBC 9.4 RBC 4.55 Hgb 14.1 Hct 41.8 MCV 91.9 MCH 31.1 MCHC 33.8 RDW 12.9 Plt Count 170 MPV 8.8 Sodium 141 Potassium 4.2 Chloride 103 Carbon Dioxide 31 Anion Gap 7 L BUN 16 Creatinine 1.1 Creat Clearance w eGFR > 60 Random Glucose 110 H Calcium 9.2 Phosphorus 4.2 Magnesium 2.4 Total Bilirubin 0.6 AST 14 L ALT 36 Alkaline Phosphatase 68 Creatine Kinase 102 Troponin I < 0.02 Total Protein 7.0 Albumin 3.6 Triglycerides Cholesterol Total LDL Cholesterol HDL Cholesterol TSH 4.06 H D 2.95 D Free T4 1.26 H 02/04/18 05:30 WBC RBC Hgb Hct MCV MCH MCHC RDW Plt Count MPV Sodium 138 Potassium 4.0 Chloride 111 H Carbon Dioxide 25 Anion Gap 2 L BUN 15 Creatinine 0.8 Creat Clearance w eGFR > 60 Random Glucose 96 Calcium 9.1 Phosphorus 3.5 Magnesium 2.1 Total Bilirubin AST ALT Alkaline Phosphatase Creatine Kinase Troponin I Total Protein Albumin Triglycerides 70 Cholesterol 100 Total LDL Cholesterol 46 HDL Cholesterol 48 TSH Free T4 IMAGING: CXR: No acute disease Post transvenous pacemaker CXR: No acute disease CT Chest: No acute pathology HOSPITAL COURSE: Date of Admission:02/03/18 Date of Discharge: 02/04/18 62 yo Male with PMH of Depression and HLD presented with complaints of LOC numerous times over the last two days. The patient describes a sense of blood rushing to his head and then his eyes roll up and he loses consciousness. These events have been witness and the patient has some shaking during the episodes, but not severe contraction of extremities or tonic clonic movements. He does not have episodes of tongue biting or bowel or bladder incontinence. He does not have any confusio and is immediately aware of his surroundings after he regains consciousness. The episodes last usually about 5-10 seconds though some have lasted up to 30 seconds. He has not had any head trauma and has only fallen once or twice. He complains of some left leg pain which is very minimal. He states that he does occasional yard work but does not spend much time in [place]. He denies any recent bug bites specifically any tick bites or rashes. He was found to have 3rd degree heart block on ECG. He was seen by cardiology who recommended a Dopamine drip until a Transvenous Pacemaker was placed. The patient was stable and without any symptoms or complications following transvenous pacer placement. It was determined that the patient should be transferred to [facility] for placement of a permanent pacemaker. The risks and benefits were explained and the patient agreed for transfer. Minutes to complete discharge: 35 Discharge Summary Reason For Visit: HIGH GRADE ATRIOVENTRICULAR BLOCK Condition: Stable - Instructions Diet, Activity, Other Instructions: You were admitted to the hospital and found to have 3rd degree heart block, an abnormal rythm that was causing you to pass out. You were started on a medication to control your heart rythm which was effective until a transvenous pacemaker could be placed. That was inserted without complication and at that time Cardiology recommended that you be transferred to [facility]. Please continue all medications as they were prescribed prior to your admission. You should follow up with your primary care physician within one week and follow all recommendations made by the physicians at [place] upon discharge Disposition: TRANSFER ACUTE CARE/OTHER HOSP - Home Medications Comprehensive Discharge Medication List: Ambulatory Orders Aripiprazole [Abilify] 10 mg PO DAILY 02/03/18 Escitalopram Oxalate [Lexapro -] 20 mg PO DAILY 02/03/18 Lamotrigine [Lamictal] 200 mg PO BID 02/03/18 This patient is new to me today: No Emergency Visit: Yes ED Registration Date: 02/03/18 Care time: The patient presented to the Emergency Department on the above date and was hospitalized for further evaluation of their emergent condition. Critical Care patient: Yes Total Critical Care Time (in minutes): 40 Critical Care Statement: The care of this patient involved high complexity decision making to prevent further life threatening deterioration of the patient 's condition and/or to evaluate & treat vital organ system(s) failure or risk of failure. - Discharge Referral Referred to [facility] Med [facility] No
--- NOTE | 2018-02-04 17:01 | PN ---
Teaching Attending Note Name of Resident: Edi Ratliff ATTENDING PHYSICIAN STATEMENT I reviewed the resident's note and discussed the case with the resident. I agree with the resident's findings and plan as documented. ASSESSMENT AND PLAN: Patient was transferred emergently to [facility] this morning for PPM placement prior to my evaluation.
== END 2018-02-04 10:55 | disposition short-term general hospital (02) | DRG 310 ==
LOC: JER 11:49 → JERBED 13:40 → JICU 18:10
PROVIDERS: ADMIT Hospitalist; ATTEND Internal Medicine
PROC: 05HM33Z Insertion of Infusion Device into Right Internal Jugular Vein, Percutaneous Approach (ICD-10-PCS; principal; 2018-02-03)
PROC: B543ZZA Ultrasonography of Right Jugular Veins, Guidance (ICD-10-PCS; 2018-02-03)
DX: I44.2 Atrioventricular block, complete (principal); E78.5 Hyperlipidemia, unspecified; G40.909 Epilepsy, unspecified, not intractable, without status epilepticus; F32.9 Major depressive disorder, single episode, unspecified; Z88.0 Allergy status to penicillin
CPT/HCPCS: 36415; 70450-TC; 71045-TC-FY; 80048; 80053; 80061; 82550; 83721; 83735; 84100; 84439; 84443; 84480; 84481; 84484; 85027; 85610; 86618; 93005; 93010; 93306-TC; 99285-25

== ENCOUNTER 2020-03-22 10:49 | Emergency (ER) | payer OTHER, BC | END 2020-03-22 11:43 | disposition home or self-care (01) | LOC: JVIRT 10:49 | DX: Z03.818 Encounter for observation for suspected exposure to other biological agents ruled out (principal) | CPT/HCPCS: C9803; Q3014-GT; U0003 ==